=== PATIENT | female | born 1995 ===

== ENCOUNTER 2017-12-17 17:23 | Emergency (ER) | payer BC ==
[2017-12-17 17:34] VITALS: BP 124/82
--- NOTE | 2017-12-17 17:42 | ER Report ---
History and Physical Time Seen By MD: 17:42 Hx. of Stated Complaint: LEFT ANKLE PAIN SINCE YESTERDAY - NO INJURY HPI/ROS CHIEF COMPLAINT: Ankle pain HISTORY OF PRESENT ILLNESS: This is a 21-year-old female presents to the emergency department for left ankle pain care patient states that she was walking around quite a bit yesterday, developed some left ankle pain with some swelling. Has applied ice with minimal reduction in the swelling. Patient decided come in for further evaluation. Patient denies any injuries no previous surgeries. No other complaints. No fevers or chills. No other joint pains. REVIEW OF SYSTEMS: Respiratory: No cough, no dyspnea. Cardiovascular: No chest pain, no palpitations. Gastrointestinal: No vomiting, no abdominal pain. Musculoskeletal: As above. Allergies: Coded Allergies: No Known Drug Allergies (Unverified , 12/17/17) Home Meds No Active Prescriptions or Reported Meds Past Medical/Surgical History The patient has a past medical history of hypoglycemia. Reviewed Nurses Notes: Yes Constitutional Vital Sign - Last 24 Hours 12/17/17 17:34 Temp 98.7 Pulse 87 Resp 18 B/P (MAP) 124/82 Pulse Ox 94 O2 Delivery Room Air Physical Exam General Appearance: The patient is alert, has no immediate need for airway protection and no current signs of toxicity. Eyes: Pupils equal and round no injection. Respiratory: Chest is non tender, lungs are clear to auscultation. Cardiac: regular rate and rhythm. Gastrointestinal: Abdomen is soft and non tender, no masses, bowel sounds normal. Musculoskeletal: Neck: Neck is supple and non tender. Extremities pain to the left lateral and medial malleolus, with discomfort to the anterior aspect of the distal tibia. Very slight laxity in the left ankle. Inversion and eversion without significant pain. Swelling to the lateral malleolus. No crepitus or obvious deformities. Dorsal plantar flexion and extension intact. Sensation intact. Skin: No rashes or lesions. DIFFERENTIAL DIAGNOSIS: After history and physical exam differential diagnosis was considered for ankle sprain, ankle strain, dislocation, avulsion fracture and arthritis. Medical Decision Making EKG/Imaging Imaging ANKLE 3 VIEW MIN LEFT Indication: Left ankle pain and swelling. Comparison: None Available Findings: 3 views of the left ankle. No fracture or dislocation. No bony lesions or degenerative changes. Mild soft tissue swelling. Positive joint effusion. No radiopaque foreign body. IMPRESSION: 1. No acute osseous abnormality of the left ankle. 2. positive joint effusion. Mild soft tissue swelling. Report Dictated By: Je Garner at 12/17/2017 7:36 PM Report E-Signed By: Je Garner at 12/17/2017 7:38 PM WSN:[id number] ED Course/Re-evaluation ED Course The patient was admitted to a room. A history and physical were obtained. Differential diagnoses were considered. An x-ray of the left ankle was negative for any acute abnormalities. I reviewed the x-ray results with the patient. I did tell her I don't have a clear explanation as to why she has the mild laxity and the slight discomfort in the ankle along with the swelling. We discussed conservative treatments. Patient was placed in an air stirrup. Instructed to follow up with her primary care provider or [facility] if no resolution of the ankle pain and swelling within the next week. She declined crutches. Return to the ER for any other concerns or worsening symptoms. Decision to Disposition Date: Dec 17, 2017 Decision to Disposition Time: 20:55 Depart Departure Latest Vital Signs Vital Signs Date Time Temp Pulse Resp B/P (MAP) Pulse Ox O2 Delivery O2 Flow Rate FiO2 12/17/17 17:34 98.7 87 18 124/82 94 Room Air Impression: Primary Impression: Ankle pain Condition: Improved Disposition: HOME OR SELF-CARE Referrals: [facility] 5 Days [facility] New Scripts No Active Prescriptions or Reported Meds Patient Instructions: Swollen Ankle Joint (ED) Additional Instructions: There are no acute findings on the ankle x-ray. Not entirely sure why you have spontaneous ankle pain and swelling. I would [facility] if no improvement in the next week. Where the air stirrup for comfort. Drink plenty of water. Get plenty of rest. Take ibuprofen or Tylenol as needed for pain. Return to the ER for any other concerns or worsening symptoms. Problem Qualifiers Primary Impression: Ankle pain Chronicity: acute Laterality: left Qualified Codes: M25.572 - Pain in left ankle and joints of left foot KATHIE PERALTA CIRCULATION MANAGER-BC Dec 17, 2017 17:42
--- NOTE | 2017-12-17 19:41 | RADIOLOGY IMAGING REPORT ---
FACILITY: [facility] [place] PATIENT NAME: Melissa Weber : 1995 MR: [id number] V: [id number] EXAM DATE: ORDERING PHYSICIAN: KATHIE PERALTA TECHNOLOGIST: Location: [facility] [place] Patient: Melissa Weber : 1995 Visit/Account:[id number] Date of Sevice: 12/17/2017 ANKLE 3 VIEW MIN LEFT Indication: Left ankle pain and swelling. Comparison: None Available Findings: 3 views of the left ankle. No fracture or dislocation. No bony lesions or degenerative changes. Mild soft tissue swelling. Positive joint effusion. No radiopaque foreign body. IMPRESSION: 1. No acute osseous abnormality of the left ankle. 2. positive joint effusion. Mild soft tissue swelling. Report Dictated By: Je Garner at 12/17/2017 7:36 PM Report E-Signed By: Je Garner at 12/17/2017 7:38 PM WSN:[id number]
== END 2017-12-17 20:00 | disposition home or self-care (01) ==
LOC: ER 17:45
DX: M25.572 Pain in left ankle and joints of left foot (principal); M25.472 Effusion, left ankle
CPT/HCPCS: 73610; 99283; L1930

== ENCOUNTER 2018-06-09 22:33 | Observation (INO) | payer BC ==
[~2018-06-09] VITALS: Ht 152.4 cm; Wt 65.8 kg
--- NOTE | 2018-06-09 22:58 | ER Report ---
History and Physical Time Seen By MD: 22:58 Hx. of Stated Complaint: PATIENT STATES SHE WENT SNOWBOARDING ALL DAY AND FORGOT TO EAT, HER SUGARS "TANKED AND THEN SHE BEGAN FEELING DIZZY AND HAD NAUSEA AND VOMITING. PATIENT STATES SHE HAS A "RARE METABOLIC DISORDER THAT CAUSEA HYPOGLYCEMIA EPISODES". HPI/ROS CHIEF COMPLAINT: Nausea and vomiting, hypoglycemia HISTORY OF PRESENT ILLNESS: This is a 22-year-old female. She has a rare genetic metabolic disease, still in the process of trying to work this up, no definitive diagnosis, genetic testing and treatment at the [facility]. She gets episodes where she will have vomiting and dehydration that pushes her into a metabolic acidosis or lactic acidosis that causes severe symptoms. This happened today after she was snowboarding all day. Trying to hydrate later but nausea and vomiting are preventing this. Feeling weak and typical symptoms when this happens. Denies any other illnesses. She has a note from the [facility] that specifies treatment that she should receive when this happens to her. She denies any fevers or chills. No pain including chest pain or trouble breathing at this time. She is feeling dizzy. Allergies: Coded Allergies: No Known Drug Allergies (Unverified , 12/17/17) Home Meds No Active Prescriptions or Reported Meds Reviewed Nurses Notes: Yes Constitutional Vital Sign - Last 24 Hours 06/09/18 22:41 Temp 98.6 Pulse 80 Resp 20 B/P (MAP) 118/78 Pulse Ox 94 O2 Delivery Room Air Intake and Output 06/09/18 06/09/18 06/10/18 14:59 22:59 06:59 Intake Total 500 ml Balance 500 ml Physical Exam General Appearance: The patient is alert,, no acute distress at this time. Eyes: Pupils equal and round no injection. ENT: Mucous membranes are little dry, otherwise normal oral mucosa. Respiratory: Lungs are clear to auscultation. Cardiac: regular rate and rhythm, normal peripheral perfusion Gastrointestinal: Abdomen is soft, nontender. Neuro: Alert and oriented 3, no focal deficits noted Skin: No rashes or lesions. DIFFERENTIAL DIAGNOSIS: After history and physical exam differential diagnosis was considered for patient with rare metabolic disease with concern for metabolic acidosis or lactic acidosis with nausea and vomiting at this time Medical Decision Making Data Points Result Diagram: 06/09/18 4667 06/09/182317 Laboratory Hematology Test 06/09/18 23:18 Red Blood Count 4.86 M/uL (4.17-5.56) Mean Corpuscular Volume 91.8 fL (80.0-96.0) Mean Corpuscular Hemoglobin 32.5 pg (26.0-33.0) Mean Corpuscular Hemoglobin Concent 35.4 g/dL (32.0-36.0) Red Cell Distribution Width 13.9 % (11.5-14.5) Mean Platelet Volume 9.8 fL (7.2-11.1) Neutrophils (%) (Auto) 86.9 % (39.4-72.5) Lymphocytes (%) (Auto) 9.4 % (17.6-49.6) Monocytes (%) (Auto) 2.8 % (4.1-12.4) Eosinophils (%) (Auto) 0.0 % (0.4-6.7) Basophils (%) (Auto) 0.9 % (0.3-1.4) Nucleated RBC Relative Count (auto) 0.0 /100WBC Neutrophils # (Auto) 7.7 K/uL (2.0-7.4) Lymphocytes # (Auto) 0.8 K/uL (1.3-3.6) Monocytes # (Auto) 0.3 K/uL (0.3-1.0) Eosinophils # (Auto) 0.0 K/uL (0.0-0.5) Basophils # (Auto) 0.1 K/uL (0.0-0.1) Nucleated RBC Absolute Count (auto) 0.00 K/uL Sodium Level 139 mmol/L (137-145) Potassium Level 4.1 mmol/L (3.5-5.0) Chloride Level 103 mmol/L (98-107) Carbon Dioxide Level 17 mmol/L (22-31) Blood Urea Nitrogen 14 mg/dl (7-18) Creatinine 0.80 mg/dl (0.52-1.04) Glomerular Filtration Rate Calc > 60.0 Random Glucose 88 mg/dl (75-110) Lactate 6.1 mmol/L (0.7-2.1) Uric Acid 7.4 mg/dl (2.5-7.5) Calcium Level 9.8 mg/dl (8.4-10.2) Phosphorus Level 4.2 mg/dl (2.5-4.5) Total Bilirubin 1.3 mg/dl (0.2-1.3) Aspartate Amino Transf (AST/SGOT) 25 U/L (0-35) Alanine Aminotransferase (ALT/SGPT) 23 U/L (0-56) Alkaline Phosphatase 121 U/L (0-126) Total Protein 8.2 g/dl (6.3-8.2) Albumin 5.1 g/dl (3.5-5.0) Chemistry Test 06/09/18 23:18 White Blood Count 8.9 k/uL (4.5-11.0) Red Blood Count 4.86 M/uL (4.17-5.56) Hemoglobin 15.8 g/dL (12.0-16.0) Hematocrit 44.6 % (34.0-47.0) Mean Corpuscular Volume 91.8 fL (80.0-96.0) Mean Corpuscular Hemoglobin 32.5 pg (26.0-33.0) Mean Corpuscular Hemoglobin Concent 35.4 g/dL (32.0-36.0) Red Cell Distribution Width 13.9 % (11.5-14.5) Platelet Count 196 K/uL (150-450) Mean Platelet Volume 9.8 fL (7.2-11.1) Neutrophils (%) (Auto) 86.9 % (39.4-72.5) Lymphocytes (%) (Auto) 9.4 % (17.6-49.6) Monocytes (%) (Auto) 2.8 % (4.1-12.4) Eosinophils (%) (Auto) 0.0 % (0.4-6.7) Basophils (%) (Auto) 0.9 % (0.3-1.4) Nucleated RBC Relative Count (auto) 0.0 /100WBC Neutrophils # (Auto) 7.7 K/uL (2.0-7.4) Lymphocytes # (Auto) 0.8 K/uL (1.3-3.6) Monocytes # (Auto) 0.3 K/uL (0.3-1.0) Eosinophils # (Auto) 0.0 K/uL (0.0-0.5) Basophils # (Auto) 0.1 K/uL (0.0-0.1) Nucleated RBC Absolute Count (auto) 0.00 K/uL Glomerular Filtration Rate Calc > 60.0 Lactate 6.1 mmol/L (0.7-2.1) Uric Acid 7.4 mg/dl (2.5-7.5) Calcium Level 9.8 mg/dl (8.4-10.2) Phosphorus Level 4.2 mg/dl (2.5-4.5) Total Bilirubin 1.3 mg/dl (0.2-1.3) Aspartate Amino Transf (AST/SGOT) 25 U/L (0-35) Alanine Aminotransferase (ALT/SGPT) 23 U/L (0-56) Alkaline Phosphatase 121 U/L (0-126) Total Protein 8.2 g/dl (6.3-8.2) Albumin 5.1 g/dl (3.5-5.0) ED Course/Re-evaluation Clinical Indication for ER IV: Hydration, IV Access ED Course Initial blood sugar was normal in the 90s. Difficulty getting an IV started but eventually was able to do so. While awaiting labs, gave the patient normal saline 500 cc bolus. Also gave Zofran 4 mg IV. This helped with the nausea and vomiting but then it restarted again later and given a second dose. Labs to come back showing a lactic acidosis and anion gap of 22. Blood sugar is normal. Reviewed the case with our hospitalist, Dr. Romo, recommending admission for IV treatments. Decision to Disposition Date: Jun 10, 2018 Decision to Disposition Time: 00:07 Depart Departure Latest Vital Signs Vital Signs Date Time Temp Pulse Resp B/P (MAP) Pulse Ox O2 Delivery O2 Flow Rate FiO2 06/09/18 22:41 98.6 80 20 118/78 94 Room Air Impression: Primary Impression: Metabolic acidosis Additional Impressions: Lactic acidosis Nausea and vomiting Condition: Condition Unchanged Disposition: Admitted from ER New Scripts No Active Prescriptions or Reported Meds Problem Qualifiers Additional Impressions: Nausea and vomiting Vomiting type: unspecified Vomiting Intractability: non-intractable Qualified Codes: R11.2 - Nausea with vomiting, unspecified CARLOS MORALES MD Jun 09, 2018 22:58
[2018-06-09] MEDS ORDERED: NS(*) 0.9% 500 ML BAG 500 ML IV ONE (23:05)
[2018-06-09] MEDS ORDERED: ONDANSETRON 4 MG/2 ML VIAL IVP ONE (23:05)
[2018-06-09] MEDS ORDERED: KCL 2 MEQ/ML 20 MEQ/10 ML VIAL 20 MEQ in NS 0.45%(*) 1000 ML BAG 1,000 ML IV ONE (23:05)
[2018-06-09] MEDS ORDERED: KCL 2 MEQ/ML 20 MEQ/10 ML VIAL ONE (23:23)
[2018-06-09 23:37] LABS: PLATELET COUNT, AUTOMATED 196 K/uL (150-450)
[2018-06-10] VITALS (7 sets, daily range): BP systolic 97–115; BP diastolic 61–74; Ht 152.4 cm; Wt 65.8 kg
[2018-06-10] MEDS ORDERED: ONDANSETRON 4 MG/2 ML VIAL IVP ONE (00:30)
[2018-06-10] MEDS ORDERED: KCL 2 MEQ/ML 20 MEQ/10 ML VIAL 20 MEQ in D5 1/2 NS(*) 1000 ML BAG 1,000 ML IV PRN (02:00)
[2018-06-10] MEDS ORDERED: INFLUENZA VIRUS VAC 0.5ML SYR IM ONLY ONE (02:00)
--- NOTE | 2018-06-10 02:08 | History & Physical ---
History of Present Illness Chief Complaint Weakness and hypoglycemia History of Present Illness This patient presented to the emergency room complaining of weakness and hypoglycemia. She reports that she is being evaluated for a metabolic disorder at the [facility]. She reports that when she is exerting herself and doesn't take in enough fluids that her glucose levels drop and she becomes acidotic. She was out snowboarding today and did get behind on her fluids. She then became nauseated and weak. History Problems: (1) Lactic acidosis Status: Acute Home Meds No Active Prescriptions or Reported Meds Allergies: Coded Allergies: No Known Drug Allergies (Unverified , 12/17/17) Hx Smoking: No Smoking Status: Never Smoker Exposure to Second Hand Smoke?: Yes Caffeine Intake: Tea, Soda Caffeine/Cups Per Day: 1 Hx Alcohol Use: No Hx Substance Use Disorder: No History of IV Drug Use: No Review of Systems Neurological: Weakness Gastrointestinal: Nausea, Vomiting Exam Vital Signs Vital Signs Date Time Temp Pulse Resp B/P (MAP) Pulse Ox O2 Delivery O2 Flow Rate FiO2 06/10/18 01:15 97.9 79 14 107/62 (77) 94 Room Air Neuro: No Gross deficits Eyes: PERRLA Cardiovascular: Regular Rate and Rhythm Respiratory: Clear to Auscultation GI: Abd Soft and Non-Tender Extremities: No Edema Integumentary: No Cyanosis Medical Decision Making Data Points Result Diagram: 06/09/18231706/09/182317 Assessment and Plan Problems: (1) Lactic acidosis Status: Acute Assessment & Plan: She reportedly is being evaluated for a metabolic disorder. She had an elevated lactate on admission and reports a low glucose level prior to arrival. She has been started on IV fluids and a repeat chemistry/lactate has been ordered for the morning. Venous Thromboembolism Antithrombotics Is Pt On Any Antithrombotics?: No Exam Sepsis Risk: No Definite Risk DELVIS RODRIGUEZ DO Jun 10, 2018 02:08
[2018-06-10] MEDS ORDERED: DEXTROSE IV ONE (02:11)
[2018-06-10] MEDS ORDERED: POTASSIUM CHLORIDE IV ONE (02:11)
[2018-06-10] MEDS ORDERED: [UNRECOGNIZED DRUG - OTHER] IV ONE (02:11)
[2018-06-10] MEDS ORDERED: KCL/D1/2NS 20 MEQ 1000 ML 1,000 ML IV ONE (02:32)
[2018-06-10] MEDS: ONDANSETRON 4 MG/2 ML VIAL IVP PRN ×5 (05:01→22:52)
--- NOTE | 2018-06-10 08:53 | Hospitalist Progress Note ---
Subjective Progress Notes Subjective She reports nausea is improved. She has been able to eat some breakfast this AM. Physical Exam Vital Signs Date Time Temp Pulse Resp B/P (MAP) Pulse Ox O2 Delivery O2 Flow Rate FiO2 06/10/18 07:30 98.7 92 12 109/61 (77) 93 Room Air Intake and Output0 06/10/18 07:00 Intake Total 1300 ml Output Total 625 ml Balance 675 ml Intake Oral 800 ml IV Total 500 ml Output Emesis 625 ml # Voids 1 # Emeses 3 General Appearance: Alert, Awake Cardiovascular: Regular Rate and Rhythm Respiratory: Clear to Auscultation GI: Soft and Non-Tender (BS present) Extremities: Warm, Perfused Integumentary: Other (No rashes) Psych: Alert & Oriented X3 Result Diagram: 06/09/18 2318 06/10/18 0551 Item Value Date Time Lactate 4.4 mmol/L *H 06/10/18 05 Calcium Level 8.9 mg/dl 06/10/18 0551 Assessment and Plan Problems: (1) Lactic acidosis Status: Acute Assessment & Plan: She reportedly is being evaluated for a metabolic disorder at the [facility]. She had an elevated lactate on admission and reports a low glucose level prior to arrival. She has been started on IV fluids and anti-emetic. Repeat chemistry/lactate shows some improvement, but persistent lactic acidosis. Will continue with IV dextrose infusion. Watch labs closely. Exam Sepsis Risk: No Definite Risk DELTA RICH MD Jun 10, 2018 08:53
[2018-06-10] MEDS: KCL/D1/2NS 20 MEQ 1000 ML 1,000 ML IV SCH ×3 (09:06→22:21)
[2018-06-11] MEDS: ONDANSETRON 4 MG/2 ML VIAL IVP PRN (03:20)
[2018-06-11 03:21] VITALS: BP 93/56
[2018-06-11] MEDS: KCL/D1/2NS 20 MEQ 1000 ML 1,000 ML IV SCH (04:57)
[2018-06-11 05:32] LABS: PLATELET COUNT, AUTOMATED 159 K/uL (150-450)
[2018-06-11 07:43] VITALS: BP 109/74
[2018-06-11] MEDS ORDERED: ONDA4TAB9 PO (10:16)
--- NOTE | 2018-06-11 10:19 | Hospitalist Depart ---
Discharge Summary Reason for Hosp/Final Diag: (1) Lactic acidosis Status: Acute Hospital Course & Plan: She reportedly is being evaluated for a metabolic disorder at the [facility]. She had an elevated lactate on admission and reports a low glucose level prior to arrival. She has been started on IV fluids and anti-emetic. Repeat chemistry/lactate shows improvement and is now eating and drinking without difficulty. She will follow up in one week with PCP. Departure Latest Vital Signs Vital Signs 06/11/18 06/11/18 06/11/18 03:21 07:43 09:38 Temp 98.0 Pulse 66 Resp 16 B/P (MAP) 109/74 (86) Pulse Ox 96 O2 Delivery Room Air Weight (Pounds): 145 Result Diagram: 06/11/18 0515 06/11/1815 Condition: Improved Discharge: Home, Self Care Discharge Instructions Home Meds Active Scripts Ondansetron 4 Mg Odt (ONDANSETRON 4 MG ODT) 4 Mg Tab.rapdis, 4 MG PO Q6H PRN for NAUSEA, #10 TAB Prov:RACHANA ESCOTO 06/11/18 Diet: Regular Activity: As Tolerated Special Instructions: Take Zofran as needed for nausea. Follow up in 1 week with Primary Care Provider. Venous Thromboembolism Antithrombotics Is Pt On Any Antithrombotics?: No RACHANA ESCOTO Jun 11, 2018 10:19
== END 2018-06-11 10:17 | disposition home or self-care (01) ==
LOC: ER 22:57 → INTOOBSV 06-10 00:47 → MED 06-10 00:47 → UNDOADMOB 06-10 00:47
PROVIDERS: ADMIT Family Medicine; ATTEND Family Medicine
DX: E87.2 Acidosis (principal); R11.2 Nausea with vomiting, unspecified; R53.1 Weakness
CPT/HCPCS: 36415; 83605; 84100; 84550; 85025; 96361; 96374; 99284; G0378; J2405; J3480; J7040; 82040; 82247; 82310; 82374; 82435; 82565; 82947; 84075; 84132; 84155; 84295; 84450; 84460; 84520